=== PATIENT | male | born 2005 | race Caucasian/White ===

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

== ENCOUNTER 2024-07-01 17:29 | Emergency (ER) | payer OTHER, SELFPAY ==
--- OUTSIDE RECORDS SUMMARY | 2024-07-01 17:31 | XMS_ITS ---
Author Name TASIA GARCIA Address [address] [place] [address] Phone Organization [facility] Address [address] [place] [address] Phone Care Team Providers Care Biomedical Engineering Technician Name Role Phone DO TASIA GARCIA Unavailable ALLERGIES, ADVERSE REACTIONS AND ALERTS Allergy Name Allergy Date Allergy Status Allergy Severity Allergy Reaction NO KNOWN DRUG ALLERGIES MEDICATIONS RxNorm Brand Name Prescription Ordered Value Order Unit Start Date Date Status Fill Status Indications nadolol 20 mg tablet SIG: nadolol 20 mg oral tablet, 30 days, Dispense #30 Tablet, 0 RefillsDirecti ons: Take 1 oral tablet once a day 30 tablet 2018 Current PROBLEMS Problem Code Problem Description Problem Status Problem Da te Problem End Date F90.0-BAJRVXUFL-SJFMC IT HYPERACTIVITY DISORDER, PREDOMINANTLY INATTENTIVE TYPE ATTENTION-DEFICIT HYPERACTIVITY DISORDER, PREDOMINANTLY INATTENTIVE TYPE Chronic 09/28/2018 I45.81-LONG QT SYNDROME LONG QT SYNDROME Chronic 09/28/2018 E66.3-OVERWEIGHT OVERWEIGHT Chronic 01/17/2022 PROCEDURES Procedure Description Date Notes NO PROCEDURES PERFORMED ASSESSMENTS Assessment None PLAN OF TREATMENT Assessment Planned Activity LOINC Planned Kni e None CONSULTATION NOTE Note Author Date None HISTORY AND PHYSICAL NOTE Note Author Date None PROGRESS NOTE Note Author Date None DISCHARGE SUMMARY Note Author Date None CHIEF COMPLAINT AND REASON FOR VISIT FUNCTIONAL STATUS Functional or Cognitive Find ing None MENTAL STATUS Cognitive Finding None ENCOUNTERS Encounter Type Provider Diagnoses Start Date Location None SOCIAL HISTORY Social Status Observation Never Smoker Sex:Male CARE TEAM INFORMATION Biomedical Engineering Technician Provider ID Role Location Phone TASIA GARCIA [phone] PHYSICIAN [address] [place] [address]
--- OUTSIDE RECORDS SUMMARY | 2024-07-01 17:31 | XMS_ITS | Clinical Summary ---
Author Organization [facility] Address [address] [place] [address] Care Team Providers Care Healthcare Insurance Sales Agent Name Role Phone Josse Jung DO Primary Care Provider [phone] Lucila Espinoza MD Unavailable [phone] Allergies No known active allergies Medications nadoloL (CORGARD) 20 mg tablet Take 1 tablet (20 mg total) by mouth daily 90 tablet 11 12/27/2022 Active Active Problems Problem Noted Date Diagnosed Date Long QT syndrome 09/24/2016 Overview (11/20/2017): 1. Long QT syndrome type 2, gene positive A. Diagnosed in 2012 B. 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 Abnormal EKG D. Currently on Nadolol 20mg qday. Medical History Medical History Date Comments Attention-deficit hyperactivity disorder Attention-deficit/hyperactivity disorder - (Added by Conv) Uncomplicated asthma Reactive ai rway disease - (Added by TW Conv) Family History Medical History Relation Name Comments Long QT syndrome Mother Family hist ory of long QT syndrome - (Added by TW Conv) Allergies Other Allergies - (Ad ded by TW Conv) Asthma Other Asthma - (Added by TW Conv) Cancer Other Cancer - (Added by TW Conv) Heart disease Other Heart Disease - (Added by TW Conv) Hypertension Other Hypertension - (Added by TW Conv) Relation Name Status Comments Mother Other Social History Tobacco Use Types Packs/Day Years Used Date Smoking Tobacco: Never Smokeless Tobacco: Never Sex and Gender Information Value Date Recorded Sex Assigned at Not on file 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 Gender Identity Not on file Sexual Orientation Not on file Obstetrics History Growth Chart Information Age Height Weight Pjezel-tyo-mvfk th Percentile BMI Percentile Head Circum Head Circum Percentile Date 17 years 182.4 cm (5' 11.81 ) 100 kg (220 lb 7.4 oz) 95.49%* 2022 16 years 181 cm (5' 11.26 ) 99 kg (218 lb 4.1 oz) 96.14%* 2021 14 years 179.8 cm (5' 10.79 ) 90.9 kg (200 lb 6.4 oz) 95.54%* 2019 13 years 176.5 cm (5' 9.5 ) 78.2 kg (172 lb 6.4 oz) 91.70%* 2019 13 years 175 cm (5' 8.9 ) 75.9 kg (167 lb 5.3 oz) 91.32%* 2018 13 years 172.7 cm (5' 8 ) 71.8 kg (158 lb 3.2 oz) 89.74%* 2018 12 years 170.2 cm (5' 7.01 ) 64.5 kg (142 lb 1.6 oz) 83.40%* 2018 12 years 164.9 cm (5' 4.92 ) 61.1 kg (134 lb 11.2 oz) 87.04%* 2017 11 years 160.1 cm (5' 3.03 ) 56.9 kg (125 lb 7.1 oz) 88.25%* 2016 11 years 157 cm (5' 1.81 ) 52.2 kg (115 lb 1.3 oz) 85.49%* 2016 10 years 154 cm (5' 0.63 ) 50.7 kg (111 lb 12.4 oz) 88.50%* 2015 10 years 151.4 cm (4' 11.61 ) 46.9 kg (103 lb 6.3 oz) 86.11%* 2015 9 years 146 cm (4' 9.48 ) 40.3 kg (88 lb 13.5 oz) 79.81%* 2014 8 years 143 cm (4' 8.3 ) 36.3 kg (80 lb 0.4 oz) 72.22%* 2013 8 years 139.3 cm (4' 6.84 ) 35.6 kg (78 lb 7.7 oz) 80.67%* 2013 7 years 133.7 cm (4' 4.64 ) 31.3 kg (69 lb 0.1 oz) 76.76%* 2012 7 years 133.5 cm (4' 4.56 ) 28.2 kg (62 lb 2.7 oz) 49.84%* 2012 6 years 133.4 cm (4' 4.5 ) 26.2 kg (57 lb 12.9 oz) 23.73%* 2012 6 years 120.3 cm (3' 11.36 ) 24.3 kg (53 lb 9.2 oz) 72.44%* 2012 6 years 127 cm (4' 2 ) 24.9 kg (54 lb 14.3 oz) 43.21%* 2012 6 years 127 cm (4' 2 ) 26.3 kg (58 lb 0.1 oz) 64.47%* 2012 * [facility] (Boys, 2-20 Years) Last Filed Vital Signs Vital Sign Reading Time Taken Comments Blood Pressure 138/92 12/27/2022 1:55 PM CDT Pulse 51 12/27/2022 1:55 PM CDT Temperature 36.3 C (97.3 F) 09/15/2021 8:57 AM CDT Respiratory Rate 21 09/15/2021 10:0 0 AM CDT Oxygen Saturation 97% 12/27/2022 1:55 PM CDT Inhaled Oxygen Concentration - - Weight 100 kg (220 lb 7.4 oz) 12/27/2022 1:55 PM CDT Height 182.4 cm (5' 11.81 ) 12/27/2022 1:55 PM C DT Body Mass Index 30.06 12/27/2022 1:55 PM CDT Body Mass Index Percentile 95.49% 12/27/2022 1:5 5 PM CDT Growth Chart: CDC (Boys, 2-2 0 Years) Plan of Treatment Health Maintenance Due Date Last Done Comments Depression Screening 2004 Hepatitis C Screening 2004 DTaP/Tdap/Td Vaccine (1 - Tdap) 08/07/2015 Varicella Vaccines (1 of 2 - 13+ 2-dose series) 2017 HPV Vaccines (1 - Male 3-dos e series) 08/07/2019 Meningococcal B Vaccine (1 o f 2 - Standard) 2020 Hepatitis B Screening 2022 Regular Well Visit/Exam 18-64 2022 Influenza Vaccine (#1) 2023 Meningococcal Vaccine Completed 11/24/2021 Pneumococcal vaccine <65 Aged Out No longer eligible based on patient's age to complete this topic Medical Devices Implanted Type Area Interventional Radiology Technologist Device Identifier Shelf Expiration Date Model / Serial / Lot [employer] V[employer] [id number] Confirm Rx 1 Touch Program Data Storage Remote Monitor Mark Flores - [id number] - [id number] Implanted:Qty : 1 on 04/06/2019 by Lucila Espinoza MD at [facility] Implantable Loop Recorder [employer] [id number] / [id number] / Insurance [facility] CHOICE PLUS [facility] CHOICE PLUS [place] [id number] [facility] CHOICE PLUS [facility] CHOICE PLUS [address] [place] [id number] Advance Directives For more information, please contact: [phone] * Full Code (Latest Code Status on File) Date Activated Date Inactivated Comments 09/15/2021 7:14 AM 09/15/2021 3:26 PM * Full Code Date Activated Date Inactivated Comments 04/06/2019 9:31 AM 04/06/2019 3:16 PM * Full Code Date Activated Date Inactivated Comments 04/06/2019 7:11 AM 04/06/2019 9:31 AM Care Teams Healthcare Insurance Sales Agent Relationship Specialty Start Date End Date Josse Jung DO PCP - General Family Medicine 11/21/17 Lucila Espinoza MD [address] [place] [address] Referring Physician Cardiology 03/23/21
--- OUTSIDE RECORDS SUMMARY | 2024-07-01 17:31 | XMS_ITS | Referral Summary ---
Author Organization [facility] Address [address] [place] [address] Care Team Providers Care Correspondence Dictator Name Role Phone Josse Jung DO Primary Care Provider [phone] Lucila Espinoza MD Unavailable [phone] Allergies No known active allergies Medications nadoloL (CORGARD) 20 mg tablet Take 1 tablet (20 mg total) by mouth daily 90 tablet 11 12/27/2022 Active Active Problems Problem Noted Date Diagnosed Date Long QT syndrome 09/24/2016 Overview (11/20/2017): 1. Long QT syndrome type 2, gene positive A. Diagnosed in 2012 B. GeneDx, accession #: [id number], buccal cells: KCNH2 mutation: [id number] (CCC>CTA) in exon 6 C. Abnormal EKG D. Currently on Nadolol 20mg qday. 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 Gender Identity Not on file Sexual Orientation Not on file Last Filed Vital Signs Vital Sign Reading [...] 12/27/2022 1:5 5 PM CDT Growth Chart: [facility] (Boys, 2-2 0 Years) Plan of Treatment Not on file Medical Devices Implanted Type Area Cracking Machine Operator Device Identifier Shelf Expiration Date Model / Serial / Lot [employer] [id number] Confirm Rx 1 Touch Program Data Storage Remote Monitor Mark Flores - [id number] - [id number] Implanted:Qty : 1 on 04/06/2019 by Lucila Espinoza MD at [facility] Implantable Loop Recorder [employer] [id number] / [id number] / Insurance [facility] CHOICE PLUS [facility] HMO/PPO Address: [facility] [address] [place] [address] [facility] CHOICE PLUS [facility] HMO/PPO Address: [address] [place] [address] [facility] CHOICE PLUS [facility] HMO/PPO Address: [address] [place] [address] [facility] CHOICE PLUS [facility] HMO/PPO Address: [facility] [address] [place] [address] Advance Directives For more information, please contact: [phone] * Full Code (Latest Code Status on File) Date Activated Date Inactivated Comments 09/15/2021 7:14 AM 09/15/2021 3:26 PM * Full Code Date Activated Date Inactivated Comments 04/06/2019 9:31 AM 04/06/2019 3:16 PM * Full Code Date Activated Date Inactivated Comments 04/06/2019 7:11 AM 04/06/2019 9:31 AM Care Teams Correspondence Dictator Relationship Specialty Start Date End Date Josse Jung DO PCP - General Family Medicine 11/21/17 Lucila Espinoza MD [address] [place] [address] Referring Physician Cardiology 03/23/21
--- OUTSIDE RECORDS SUMMARY | 2024-07-01 17:31 | XMS_ITS | Clinical Summary ---
Author Organization [facility] Address [address] [facility] [place] [address] Phone Care Team Providers Care Insurance Service Representative Name Role Phone Rell Ortega MD Primary Care Provider Allergies No known active allergies Medications 0mega-3 fatty acids-vitamin E (FISH OIL) 1,000 mg Capsule Take 1,000 mg by mouth daily. Active polyethylene glycol 3350 (MIRALAX) 17 gram/dose PowderIndication s:Constipation Take 1/2 capful in 8 ounces of juice or milk by mouth once daily for 1 week, then every other day. 527 Gram 5 08/14/2013 Active INULIN (FIBER GUMMIES ORAL) Take by mouth. Active nadolol (CORGARD) 20 mg tablet 03/19/2016 Active oxybutynin chloride (DITROPAN) 5 mg tablet Take 1 Tablet (5 mg) by mouth daily at bedtime. 90 Tablet 2 11/21/2016 Active Active Problems Problem Noted Date Diagnosed Date Diurnal enuresis 02/15/2016 Constipation 08/14/2013 Urinary frequency 07/12/2013 Urinary urgency 07/12/2013 Urinary incontinence 07/12/2013 Family History Medical History Relation Name Comments Healthy Father Healthy Mother Relation Name Status Comments Father Alive Mother Alive Social History Tobacco Use Types Packs/Day Years Used Date Smoking Tobacco: Never Assessed Sex and Gender Information Value Date Recorded Sex Assigned at Not on file Legal Sex Male 12:07 PM CDT Gender Identity Not on file Sexual Orientation Not on file Last Filed Vital Signs Vital Sign Reading Time Taken Comments Blood Pressure 104/64 11/21/2016 2:54 PM CDT Pulse - - Temperature 36.4 C (97.6 F) 11/21/2016 2:54 PM CDT Respiratory Rate - - Oxygen Saturation - - Inhaled Oxygen Concentration - - Weight 54.2 kg (119 lb 6.4 oz) 11/21/2016 2:54 P M CDT Height 156.2 cm (5' 1.5 ) 11/21/2016 2:54 PM CDT Body Mass Index 22.2 11/21/2016 2:54 PM CDT Body Mass Index Percentile 89.44% 11/21/2016 2:5 4 PM CDT Growth Chart: [facility] (Boys, 2-2 0 Years) Plan of Treatment Health Maintenance Due Date Last Done Comments CHLAMYDIA SCREENING (ANNUAL) 11-24 YEARS 08/07/2015 HPV VACCINES (1 - Male 3-dos e series) 08/07/2019 DTAP/TDAP/TD VACCINES (1 - Tdap) 08/07/2023 HEPATITIS B VACCINES (1 of 3 - 19+ 3-dose series) 08/07/2023 INFLUENZA VACCINE (#1) 2023 PNEUMOCOCCAL VACCINE 0-49 YEARS Aged Out No longer eligible based on patient's age to complete this topic Insurance [address] [address] Care Teams Insurance Service Representative Relationship Specialty Start Date End Date Rell Ortega MD PCP - General Pediatrics 07/08/13
--- OUTSIDE RECORDS SUMMARY | 2024-07-01 17:34 | XMS_ITS ---
Author Name TASIA GARCIA Address [address] [place] [address] Phone Organization [facility] Address [address] [place] [address] Phone Care Team Providers Care Body Piercer Name Role Phone DO TASIA GARCIA Unavailable [...] Status Problem Da te Problem End Date F90.3-VVARGHUAX-TFEDP IT HYPERACTIVITY DISORDER, PREDOMINANTLY INATTENTIVE TYPE ATTENTION-DEFICIT HYPERACTIVITY DISORDER, PREDOMINANTLY INATTENTIVE TYPE Chronic 09/28/2018 I45.81-LONG QT SYNDROME LONG QT SYNDROME Chronic 09/28/2018 E66.3-OVERWEIGHT OVERWEIGHT Chronic 01/17/2022 PROCEDURES Procedure Description Date Notes NO PROCEDURES PERFORMED ASSESSMENTS Assessment None PLAN OF TREATMENT Assessment Planned Activity LOINC Planned Kin e None CONSULTATION NOTE Note Author Date [...] Observation Never Smoker Sex:Male CARE TEAM INFORMATION Body Piercer Provider ID Role Location Phone TASIA GARCIA [phone] PHYSICIAN [address] [place] [address]
[2024-07-01 17:42] VITALS: BP 143/75; PULSE 97; RESP 16; TEMP 37.1; O2SAT 100
--- NOTE | 2024-07-01 17:47 | ED_ITS ---
HPI - Wound/Laceration General Chief Complaint: Wound/Laceration Stated Complaint: cut finger left hand Time Seen by Provider: 07/01/24 17:46 Source: patient, family, RN notes reviewed and old records reviewed Mode of arrival: ambulatory Limitations: no limitations History of Present Illness HPI narrative: 18 year old male accompanied by his father with laceration to his left dorsal mid index finger which occurred when he was using a knife to cut fuel line and knife slipped and he cut his finger. Patient has flap style of laceration of skin to dorsal mid aspect of his left index finger over PIP joint area, bleeding is controlled. Patient reports that he just wrapped his finger in paper towel and has applied pressure to area. Patient reports that his tetanus is up to date. Onset (ago): minute(s) (20-30 minutes prior to arrival) Location: other (left index finger at pip joint region) Place: home and outdoors Patient tetanus UTD: Yes Treatments prior to arrival: other (wrapped in papaer towel and applied pressure to area.) Related Data Home Medications ?Medication ?Instructions ?Recorded ?Confirmed ?Last Taken ?Type nadolol 20 mg tablet 20 mg PO DIRECTED 10/14/22 07/01/24 Unknown History Allergies Allergy/AdvReac Type Severity Reaction Status Date / Time No Known Allergies Allergy Verified 07/01/24 17:32 Review of Systems Review of Systems: CONSTITUTIONAL: Denies fever, chills, or sweats. CARDIOVASCULAR: Denies chest pain, palpitations, or edema. RESPIRATORY: Denies cough or dyspnea. SKIN: Reports laceration to the left mid dorsal index finger flap type of laceration MUSCULOSKELETAL: Denies musculoskeletal pain NEUROLOGIC: Denies numbness, or weakness. All systems reviewed & are unremarkable except as noted in HPI and below [facility] Past Medical History Medical History (Updated 07/02/24 @ 13:51 by Elizabeth Roldan NP) Long QT syndrome Surgical History Surgical History (Updated 07/01/24 @ 17:55 by Elizabeth Roldan NP) History of placement of ear tubes Family History Family History Mother Family history non-contributory Social History Social History (Updated 07/02/24 @ 13:46 by Elizabeth Roldan NP) Smoking status: Never smoker Alcohol intake: never Substance use: never Living arrangements: with family Gender identity (if verbalized by the patient): Male Spiritual care concerns: No Comments At time of signature, agree with nursing past medical, surgical, social and family history. There is no relevant family history pertinent to the presenting complaint Exam Narrative: GENERAL: Well-appearing, well-nourished, and in no acute distress. HEAD: Normocephalic, atraumatic. NECK: Supple. no lymphadenopathy CHEST: Clear to auscultation. No respiratory distress.SAO2 100% on room air HEART: Regular rate and rhythm. No murmur heard. Normal peripheral pulses. EXTREMITIES: Normal range of motion. No edema. SKIN: Warm, dry, no rash. Reports 1.5cm flap style of laceration to skin at PIP joint area of left index finger, bleeding is controlled , patient has full movement of left index fingernail bed blanches briskly, sensation is intact NEURO: No focal deficits. Alert and oriented x3. Course Course Level of Care: Express Care Visit Vital Signs Vital signs: Vital Signs Temperature 37.1 C 07/01/24 17:42 Pulse Rate 97 07/01/24 17:42 Respiratory Rate 16 07/01/24 17:42 Blood Pressure 143/75 H 07/01/24 17:42 Pulse Oximetry 100 07/01/24 17:42 Oxygen Delivery Room Air 07/01/24 17:42 Temperature 37.1 C 07/01/24 17:42 Pulse Rate 97 07/01/24 17:42 Respiratory Rate 16 07/01/24 17:42 Blood Pressure 143/75 H 07/01/24 17:42 Pulse Oximetry 100 07/01/24 17:42 Oxygen Delivery Room Air 07/01/24 17:42 Procedures Laceration index finger mid dorsal aspect: Date: 07/01/24 Time: 18:00 Site: hand (left index finger) Side (If applicable): left Size (cm): 1.5 Description: flap Depth: simple, single layer Local Anesthetic: lidocaine 1% Amount of anesthesia used (mL): 6 Pre-repair: irrigated extensively and other (wound cleansing solution) ====== Skin Level ====== Skin layer closed with: vicryl Size (cm): 4-0 Number of sutures: 6 Technique: simple, interrupted ====== Subcutaneous Layer ====== ====== Muscle Layer ====== ====== Tendon Layer ====== Dressing: Telfa dressing with gauze and Coban to secure and finger splint applied for protection. MDM - Wound/Laceration MDM Narrative Medical decision making narrative: Wound explored for foreign body and copious irrigation provided with no evidence of FB. Discussed the potential of retained foreign body with the patient and signs/symptoms that should prompt the patient to immediately go to the ED for reevaluation. The wound was explored and no foreign bodies were found. There was no evidence of tendon or nerve lacerations. The wound was closed per procedure note. A sterile dressing was then applied and anticipatory guidance was provided. Tetanus prophylaxis [(was/was not)] given Differential Diagnosis Differential diagnosis: Likely laceration, abrasion, avulsion of skin and other (flap laceration to left index finger at PIP joint area) Medical Records Attestation: I reviewed the patient's medical records. Critical Care Time Critical Care Time Critical Care Time: No Discharge Plan Discharge Clinical Impression: Laceration of left index finger Qualifiers: Encounter type: initial encounter Damage to nail status: without damage Foreign body presence: without foreign body Qualified Code(s): S61.211A - Laceration without foreign body of left index finger without damage to nail, initial encounter Patient Disposition: Home, Self-Care Condition: Stable Instructions: Antibiotic Form, Laceration (ED) Additional Instructions: Keep the area clean and dry No continuous water contact like dishes or swimming You may bathe and wash you hair caution with hair products or lotions Antibiotic ointment to the area, such as bacitracin 1 time daily dressing of choice watch for infection--redness, swelling, drainage follow up with PCP for suture/staple in removal 10 days recheck with PCP if further concerns or problems antibiotic as prescribed complete all doses If your symptoms persist, change or worsen significantly before you can contact your personal physician then please, without delay, go to the emergency department for further evaluation. Follow-up with PCP in 7-10 days or sooner if needed Follow up with PCP soon in regards to your blood pressure which is elevated above threshold for referral. Blood pressure above 120/80 may indicate pre- hypertension. 143/75 Patient Language: [place] Prescriptions: New cephalexin 500 mg capsule 500 mg PO Q8H Qty: 21 0RF No Action nadolol 20 mg tablet 20 mg PO DIRECTED Follow-up/Referrals: Erich,Josse Verdugo DO [Primary Care Provider] - Time of Disposition: 18:37 Quality Sanderson Coma Scale Eyes: Open Verbal: Oriented and Alert Motor: Follows Commands Marcello Coma Total Score: 15
== END 2024-07-01 18:40 | disposition home or self-care (01) ==
PROVIDERS: Emergency Provider Registered Nurse; PCP Family Medicine
DX: S61.211A Laceration without foreign body of left index finger without damage to nail, initial encounter (principal); W26.0XXA Contact with knife, initial encounter
CPT/HCPCS: 12001; 99213; G0463; J2003